=== PATIENT | male | born 1930 | race Caucasian/White ===

== ENCOUNTER 2016-06-28 12:58 | Emergency (ER) | payer MEDICARE, OTHER ==
[2016-06-28 13:35] VITALS: BP 147/76
[2016-06-28] MEDS ORDERED: Lidocaine 4% Top Soln 50 ML Bottle MUCMEM ONE (14:05)
[2016-06-28] MEDS ORDERED: Lidocaine 2% Jelly 10 ML Urojet MUCMEM ONE (14:12)
--- NOTE | 2016-06-28 16:20 | EDM.PDOC ---
ED HPI GI/ABDOMINAL - General Chief Complaint: Genitourinary Problem Stated Complaint: KIDNEY STONE,CAN't URINATE Time Seen by Provider: 06/28/16 13:44 Source of Information: Reports: Patient History Limitations: Reports: No limitations - History of Present Illness INITIAL COMMENTS - FREE TEXT/NARRATIVE: The patient had right flank pain and he saw Dr Montano who diagnosed him with a kidney stone. He passed it on Wednesday. There was a second stone in his kidney. He is having more pain now and he cannot urinate. He has no fever, chills, cough, chest pain, nausea or vomiting. He has had kidney stones in the past. Since last night he has passed very little urine. Timing/Duration: Reports: Day(s): (Yesterday) Location: flank (right and suprpubic region) Quality: Reports: cramping Severity: moderate Context: Denies: sick contact, bad/questionable food, out of country travel, recent surgery Associated Symptoms: Reports: denies other symptoms - Related Data Allergies/ADRs: Allergies Allergy/AdvReac Type Severity Reaction Status Date / Time No Known Allergies Allergy Verified 06/28/16 13:38 Past Medical History Respiratory History: Reports: Other (see below) Other Respiratory History: chest tube to drain fluids Gastrointestinal History: Reports: Other (see below) Other Gastrointestinal History: 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 Genitourinary History: Reports: Renal calculus, Renal disease Musculoskeletal History: Reports: Back pain, chronic, Osteoarthritis - Infectious Disease History Infectious Disease History: Reports: Mumps - Past Surgical History HEENT Surgical History: Reports: Other (see below) Other HEENT Surgeries/Procedures: MASHPEE-wears hearing aides GI Surgical History: Reports: Colonoscopy, Hernia, inguinal Social & Family History - Tobacco Use Month Tobacco Last Used: 15 - Caffeine Use Caffeine Use: Reports: Coffee, Soda - Recreational Drug Use Recreational Drug Use: No ED ROS GENERAL - Review of Systems Review Of Systems: See Below Constitutional: Reports: no symptoms HEENT: Reports: No symptoms Respiratory: Reports: No Symptoms Cardiovascular: Reports: No symptoms Endocrine: Reports: no symptoms GI/Abdominal: Reports: Abdominal pain (suprapubic) : Reports: flank pain (right) Musculoskeletal: Reports: no symptoms ED EXAM, GI/ABD - Physical Exam Exam: See Below Exam Limited By: No limitations General Appearance: alert, no apparent distress Ears: normal external exam Nose: normal inspection Head: atraumatic, normocephalic Neck: normal inspection Respiratory/Chest: no respiratory distress, lungs clear, normal breath sounds Cardiovascular: regular rate, rhythm, no edema, no murmur GI/Abdominal: soft, other (Moderate tenderness to the lower abdomen with palpable bladder) Course - Vital Signs Last Recorded V/S: Last Vital Signs Temp 97.5 F 06/28/16 13:33 Pulse 76 06/28/16 13:33 Resp 15 06/28/16 13:33 BP 147/76 H 06/28/16 13:33 Pulse Ox 94 L 06/28/16 13:33 - Orders/Labs/Meds Orders: Active Orders 24 hr Category Date Time Status Pena Catheter Insertion [Insert Urinary Catheter] [OM. Care 06/28/16 14:15 Ordered PC] Q24H Urinary Catheter Assessment [RC] ASDIRECTED Care 06/28/16 14:05 Active Labs: Laboratory Tests 06/28/16 06/28/16 06/28/16 Range/Units 14:23 14:23 14:30 WBC 11.94 H (4.23-9.07) K/mm3 RBC 4.31 L (4.63-6.08) M/mm3 Hgb 13.2 L (13.7-17.5) gm/L Hct 38.7 L (40.1-51.0) % MCV 89.8 (79.0-92.2) fl MCH 30.6 (25.7-32.2) pg MCHC 34.1 (32.2-35.5) g/dl RDW Std Deviation 43.8 (35.1-43.9) fL Plt Count 160 L (163-337) K/mm3 MPV 10.1 (9.4-12.3) fl Neut % (Auto) 89.6 H (34.0-67.9) % Lymph % (Auto) 4.9 L (21.8-53.1) % [place] % (Auto) 5.2 L (5.3-12.2) % Eos % (Auto) 0.1 L (0.8-7.0) Baso % (Auto) 0.1 (0.1-1.2) % Neut # 10.70 H (1.78-5.38) K/mm3 Lymph # 0.59 L (1.32-3.57) K/mm3 [place] # 0.62 (0.30-0.82) K/mm3 Eos # 0.01 L (0.04-0.54) K/mm3 Baso # 0.01 (0.01-0.08) K/mm3 Manual Slide Review Abnormal smear Sodium 139 (136-145) mEq/L Potassium 4.2 (3.5-5.1) mEq/L Chloride 105 (98-107) mEq/L Carbon Dioxide 22 (21-32) mEq/L Anion Gap 16.2 H (5-15) BUN 18 (7-18) mg/dL Creatinine 1.6 H (0.7-1.3) mg/dL Est Cr Clr Drug Dosing 28.29 mL/min Estimated GFR (MDRD) 41 (>60) mL/min BUN/Creatinine Ratio 11.3 L (14-18) Glucose 129 H (83-115) mg/dL Calcium 8.5 (8.5-10.1) mg/dL Total Bilirubin 0.6 (0.2-1.0) mg/dL AST 16 (15-37) U/L ALT 26 (16-63) U/L Alkaline Phosphatase 86 (46-116) U/L Total Protein 6.5 (6.4-8.2) g/dl Albumin 3.6 (3.4-5.0) g/dl Globulin 2.9 gm/dL Albumin/Globulin Ratio 1.2 (1-2) Urine Color Yellow (Yellow) Urine Appearance Clear (Clear) Urine pH 5.5 (5.0-8.0) Ur Specific [place] 1.020 (1.005-1.030) Urine Protein Trace H (Negative) Urine Glucose (UA) Negative (Negative) Urine Ketones Negative (Negative) Urine Occult Blood 3+ H (Negative) Urine Nitrite Negative (Negative) Urine Bilirubin Negative (Negative) Urine Urobilinogen 0.2 (0.2-1.0) Ur Leukocyte Esterase Negative (Negative) Urine RBC 30-40 H (0-5) /hpf Urine WBC 0-5 (0-5) /hpf Ur Epithelial Cells Not seen (0-5) /hpf Urine Bacteria Few (FEW) /hpf Urine Mucus Few (FEW) /hpf Meds: Medications Discontinued Medications Generic Name Dose Route Start Last Admin Trade Name Misa PRN Reason Stop Dose Admin Lidocaine HCl 1 ml 06/28/16 14:05 06/28/16 14:19 Xylocaine 4% Top Soln MUCMEM 06/28/16 14:06 Not Given ONETIME ONE Lidocaine HCl 10 ml 06/28/16 14:12 06/28/16 14:19 Xylocaine 2% Jelly MUCMEM 06/28/16 14:13 10 ml ONETIME ONE Administration - Re-Assessments/Exams Free Text/Narrative Re-Assessment/Exam: 06/28/16 16:19 I did an US of his bladder and it appeared he had over 1L. I ordered a pena cath and there was over 1200 output. His CBC looks good. His creatinine was a little elevated at 1.6. It was at 1.5 the other day in the clinic. He feels better after the catheter. His UA shows no UTI. Departure - Departure Time of Disposition: 16:25 Disposition: Home, Self-Care 01 Condition: good Clinical Impression: Urinary retention Referrals: Tian Lee MD [Primary Care Provider] - 1 Week Forms: ED Department Discharge Additional Instructions: Follow up with your doctor in 3 to 4 days to see about having the pena cath removed. Take the flomax for about 1 week. Please return if you are worse. - My Orders Last 24 Hours: My Active Orders 06/28/16 14:05 Urinary Catheter Assessment [RC] ASDIRECTED 06/28/16 14:15 Pena Catheter Insertion [Insert Urinary Catheter] [OM.PC] Q24H - Assessment/Plan Last 24 Hours: My Active Orders 06/28/16 14:05 Urinary Catheter Assessment [RC] ASDIRECTED 06/28/16 14:15 Pena Catheter Insertion [Insert Urinary Catheter] [OM.PC] Q24H
== END 2016-06-28 16:50 | disposition home or self-care (01) ==
LOC: JD.ED 12:58
DX: R33.9 Retention of urine, unspecified (principal); M19.90 Unspecified osteoarthritis, unspecified site
CPT/HCPCS: 36415; 51702; 80053; 81001; 85025; 99283; 99283-25

== ENCOUNTER 2018-05-27 12:46 | Emergency (ER) | payer MEDICARE, OTHER ==
--- NOTE | 2018-05-27 14:21 | EDM.PDOC ---
ED HPI GENERAL MEDICAL PROBLEM - General Chief Complaint: Abdominal Pain Stated Complaint: LOWER ABDOMINAL PAIN Time Seen by Provider: 05/27/18 14:20 Source of Information: Reports: Patient History Limitations: Reports: No Limitations - History of Present Illness INITIAL COMMENTS - FREE TEXT/NARRATIVE: 88-year-old male presents to the ED with diffuse lower abdominal pain. This is preceded by 2 days of nausea and intermittent vomiting. He hasn't taken anything orally today. He appreciates more pain with walking and riding in the vehicle to get here. He has not had a bowel movement for a couple of days. This is atypical for him as he has a short colon syndrome and is usually loose in the bowel department. Denies any blood per rectum. Denies vomiting any blood. Still feels mildly nauseated. Low-grade fever recorded by the nurse at 37.3. Any fever or chills. Patient is extremely hard of hearing and wears bilateral hearing aids. He is unsure of how much of his bowels removed in 1977. His daughter is pretty sure this was for colon cancer Onset: Gradual Onset Date: 05/25/18 (Gradually getting worse over the last 3 days.) Duration: Day(s):, Getting Worse Location: Reports: Abdomen (Diffuse lower abdominal discomfort not radiating into his back.) Quality: Reports: Ache, Other (Occasional cramping pain with no diarrhea) Severity: Moderate (Rates it a 5 out of 10) Improves with: Reports: Rest Worsens with: Reports: Movement (Especially standing and getting in and out of the vehicle.) Context: Denies: Activity, Exercise, Lifting, Sick Contact, Trauma, Other Associated Symptoms: Reports: Cough, cough w sputum, Loss of Appetite, Malaise, Nausea/Vomiting (2 days ago improved with the Zofran tablet), Shortness of Breath, Weakness. Denies: No Other Symptoms, Confusion, Chest Pain (Occasional sputum production but is chronic for him.), Diaphoresis, Fever/Chills, Headaches , Rash, Seizure (Chronically but perhaps a little worse lately), Syncope Treatments ENAMEL APPLIER: Reports: Other (see below) Other Treatments ENAMEL APPLIER: zofran and prilosec Lower Abdomen Pain Score (Numeric/FACES): 8 - Related Data Allergies Allergy/AdvReac Type Severity Reaction Status Date / Time No Known Allergies Allergy Verified 06/28/16 13:38 Home Meds: Home Meds . [No Known Home Meds] 05/27/18 [History] Past Medical History Respiratory History: Reports: Other (See Below) Other Respiratory History: chest tube to drain fluids Gastrointestinal History: Reports: Other (See Below) Other Gastrointestinal History: 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 Genitourinary History: Reports: Renal Calculus, Renal Disease Musculoskeletal History: Reports: Back Pain, Chronic, Osteoarthritis - Infectious Disease History Infectious Disease History: Reports: Mumps - Past Surgical History HEENT Surgical History: Reports: Other (See Below) GI Surgical History: Reports: Colonoscopy, Hernia, Inguinal Social & Family History - Tobacco Use Smoking Status *Q: Former Smoker Used Tobacco, but Quit: Yes Month/Year Tobacco Last Used: 30 years - Caffeine Use Caffeine Use: Reports: Coffee, Soda - Recreational Drug Use Recreational Drug Use: No - Living Situation & Occupation Living situation: Reports: Occupation: Retired ED ROS GENERAL - Review of Systems Review Of Systems: See Below Constitutional: Reports: Malaise, Weakness, Fatigue, Decreased Appetite, Weight Loss (Has been losing weight gradually for the last year.). Denies: Fever, Chills HEENT: Reports: Glasses, Hearing Loss Respiratory: Reports: Shortness of Breath (Wears bilateral hearing aids.), Cough. Denies: Wheezing, Pleuritic Chest Pain, Sputum (Chronic minimally productive cough.), Hemoptysis Cardiovascular: Reports: Dyspnea on Exertion (The last day or so.), Lightheadedness. Denies: Chest Pain, Blood Pressure Problem, Claudication, Orthopnea, Palpitations ( Chronically), PND, Syncope Endocrine: Reports: Fatigue GI/Abdominal: Reports: Abdominal Pain, Decreased Appetite, Nausea, Vomiting ( Had nausea and vomiting 2 days ago none today. Last emesis was last evening.). Denies: Constipation (See history of present illness), Diarrhea : Reports: Frequency, Other (Known BPH with a trigger 2 or 3) Musculoskeletal: Reports: Joint Pain (Knees hips low back neck and shoulders at times) Skin: Reports: Bruising (Uses fairly easily.) Neurological: Reports: No Symptoms Psychiatric: Reports: No Symptoms Hematologic/Lymphatic: Reports: No Symptoms Immunologic: Reports: No Symptoms ED EXAM, GI/ABD - Physical Exam Exam: See Below Exam Limited By: Physical Impairment (Have to speak very loud to him so that he can hear. He has severely hearing impaired.) General Appearance: Other (Mildly pallid. Does feel slightly warm to palpation.) Eyes: Bilateral: Pale Conjunctiva (Mild pallor bilaterally.) Throat/Mouth: Other Head: Atraumatic (Unmeasurable dry and coated.), Normocephalic Neck: Normal Inspection, Non-Tender, Limited Range of Motion. No: Full Range of Motion, Carotid Bruit, Lymphadenopathy (L), Lymphadenopathy (R) Respiratory/Chest: Respiratory Distress, Decreased Breath Sounds (Mild tachypnea at rest.). No: Rales ( Sounds are mildly diminished the lower 25% lung chung bilaterally.), Rhonchi, Wheezing Cardiovascular: Normal Peripheral Pulses, Regular Rate, Rhythm, No Edema, No Gallop, No Murmur, No Rub GI/Abdominal Exam: Soft, No Organomegaly, Distended (Mildly distended and tympanitic to percussion particularly upper abdomen.), Guarding (Mild tenderness on deep palpation in the right lower quadrant with mild guarding parents in.), Tender, Abnormal Bowel Sounds (Bowel sounds are slightly more active than normal.), Other (Well-healed midline laparotomy incision.). No: Rigid, Rebound ( Right lower quadrant) (Male) Exam: Other (Evidence of bilateral hernia repair. Inguinal) Back Exam: Other (Mild kyphosis thoracic spine.) Neurological: Alert, Oriented, CN II-XII Intact, Normal Cognition Psychiatric: Normal Affect, Normal Mood Skin Exam: Warm, Dry, Intact, No Rash, Pallor EKG INTERPRETATION EKG Date: 05/27/18 Time: 14:47 Rhythm: Other (Occasional unifocal PVCs) Rate (Beats/Min): 86 [place]: Normal P-Wave: Enlarged (Consider left atrial enlargement.) QRS: Other (Mildly decreased voltage in the limb leads.) ST-T: Normal QT: Normal EKG Interpretation Comments: Abnormal ECG Course - Vital Signs Last Recorded V/S: Last Vital Signs Temp 37.3 C 05/27/18 13:49 Pulse 89 05/27/18 13:49 Resp 20 05/27/18 13:49 BP 138/85 05/27/18 13:49 Pulse Ox 97 05/27/18 13:49 - Orders/Labs/Meds Orders: Active Orders 24 hr Category Date Time Status Bladder Scan [RC] ASDIRECTED Care 05/27/18 17:51 Active EKG Documentation Completion [RC] STAT Care 05/27/18 14:29 Active Gastrointestinal Tube Mgmt [RC] ASDIRECTED Care 05/27/18 18:47 Active Abdomen 1V Flat [CR] Stat Exams 05/27/18 14:29 Taken Chest 1V Frontal [CR] Stat Exams 05/27/18 14:29 Taken CULTURE BLOOD [BC] Stat Lab 05/27/18 15:00 Received CULTURE BLOOD [BC] Stat Lab 05/27/18 15:08 Received Dextrose 5%-0.9% NaCl [Dextrose 5%-Normal Saline] 1,000 Med 05/27/18 14:30 Active ml IV ASDIRECTED Blood Culture x2 Reflex Set [OM.PC] Stat Oth 05/27/18 14:30 Ordered Nasogastric Orogastric Tube Insertion [OM.PC] Routine Oth 05/27/18 18:47 Ordered Medication Orders Dextrose/Sodium Chloride (Dextrose 5%-Normal Saline) 1,000 mls @ 200 mls/hr IV ASDIRECTED AREN Last Admin: 05/27/18 15:02 Dose: 200 mls/hr Labs: Laboratory Tests 05/27/18 05/27/18 05/27/18 Range/Units 15:00 15:00 15:00 WBC 7.77 (4.23-9.07) K/mm3 RBC 4.83 (4.63-6.08) M/mm3 Hgb 13.8 (13.7-17.5) gm/L Hct 41.9 (40.1-51.0) % MCV 86.7 (79.0-92.2) fl MCH 28.6 (25.7-32.2) pg MCHC 32.9 (32.2-35.5) g/dl RDW Std Deviation 45.7 H (35.1-43.9) fL Plt Count 184 (163-337) K/mm3 MPV 10.7 (9.4-12.3) fl Neutrophils % (Manual) 86 H (40-60) % Band Neutrophils % 0 (0-10) % Lymphocytes % (Manual) 11 L (20-40) % Atypical Lymphs % 0 % Monocytes % (Manual) 2 (2-10) % Eosinophils % (Manual) 1 (0.8-7.0) % Basophils % (Manual) 0 L (0.2-1.2) Platelet Estimate Adequate RBC Morph Comment Normal PT 10.9 (9.5-12.1) SECONDS INR 1.00 APTT 24 (24-31) SECONDS Sodium 138 (136-145) mEq/L Potassium 4.5 (3.5-5.1) mEq/L Chloride 103 (98-107) mEq/L Carbon Dioxide 22 (21-32) mEq/L Anion Gap 17.5 H (5-15) BUN 28 H (7-18) mg/dL Creatinine 1.6 H (0.7-1.3) mg/dL Est Cr Clr Drug Dosing 26.21 mL/min Estimated GFR (MDRD) 41 (>60) mL/min BUN/Creatinine Ratio 17.5 (14-18) Glucose 128 H (83-115) mg/dL Lactic Acid (0.4-2.0) mmol/L Calcium 9.0 (8.5-10.1) mg/dL Magnesium 2.2 (1.8-2.4) mg/dl Total Bilirubin 0.8 (0.2-1.0) mg/dL AST 22 (15-37) U/L ALT 19 (16-63) U/L Alkaline Phosphatase 122 H (46-116) U/L Troponin I < 0.017 (0.00-0.056) ng/mL C-Reactive Protein 1.8 H* (<1.0) mg/dL NT-Pro-B Natriuret Pep (0-450) pg/mL Total Protein 7.4 (6.4-8.2) g/dl Albumin 3.5 (3.4-5.0) g/dl Globulin 3.9 gm/dL Albumin/Globulin Ratio 0.9 L (1-2) 05/27/18 05/27/18 Range/Units 15:00 15:00 WBC (4.23-9.07) K/mm3 RBC (4.63-6.08) M/mm3 Hgb (13.7-17.5) gm/L Hct (40.1-51.0) % MCV (79.0-92.2) fl MCH (25.7-32.2) pg MCHC (32.2-35.5) g/dl RDW Std Deviation (35.1-43.9) fL Plt Count (163-337) K/mm3 MPV (9.4-12.3) fl Neutrophils % (Manual) (40-60) % Band Neutrophils % (0-10) % Lymphocytes % (Manual) (20-40) % Atypical Lymphs % % Monocytes % (Manual) (2-10) % Eosinophils % (Manual) (0.8-7.0) % Basophils % (Manual) (0.2-1.2) Platelet Estimate RBC Morph Comment PT (9.5-12.1) SECONDS INR APTT (24-31) SECONDS Sodium (136-145) mEq/L Potassium (3.5-5.1) mEq/L Chloride (98-107) mEq/L Carbon Dioxide (21-32) mEq/L Anion Gap (5-15) BUN (7-18) mg/dL Creatinine (0.7-1.3) mg/dL Est Cr Clr Drug Dosing mL/min Estimated GFR (MDRD) (>60) mL/min BUN/Creatinine Ratio (14-18) Glucose (83-115) mg/dL Lactic Acid 1.0 (0.4-2.0) mmol/L Calcium (8.5-10.1) mg/dL Magnesium (1.8-2.4) mg/dl Total Bilirubin (0.2-1.0) mg/dL AST (15-37) U/L ALT (16-63) U/L Alkaline Phosphatase (46-116) U/L Troponin I (0.00-0.056) ng/mL C-Reactive Protein (<1.0) mg/dL NT-Pro-B Natriuret Pep 1007 H (0-450) pg/mL Total Protein (6.4-8.2) g/dl Albumin (3.4-5.0) g/dl Globulin gm/dL Albumin/Globulin Ratio (1-2) Meds: Medications Generic Name Dose Route Start Last Admin Trade Name Freq PRN Reason Stop Dose Admin Dextrose/Sodium Chloride 1,000 mls @ 200 mls/hr 05/27/18 14:30 05/27/18 15:02 Dextrose 5%-Normal Saline IV 200 mls/hr ASDIRECTED AREN Administration Discontinued Medications Generic Name Dose Route Start Last Admin Trade Name Freq PRN Reason Stop Dose Admin Diatrizoate Meglum/Diatrizoate Sod 60 ml 05/27/18 16:03 05/27/18 17:21 Gastrografin 37% PO 05/27/18 16:04 60 ml ONETIME ONE Administration Hydromorphone HCl 0.25 mg 05/27/18 14:28 05/27/18 15:03 Dilaudid IVPUSH 05/27/18 14:29 0.25 mg ONETIME ONE Administration Hydromorphone HCl 0.25 mg 05/27/18 17:13 05/27/18 17:31 Dilaudid IVPUSH 05/27/18 17:14 0.25 mg ONETIME ONE Administration Lidocaine HCl 10 ml 05/27/18 18:37 05/27/18 18:50 Xylocaine 2% Jelly MUCMEM 05/27/18 18:38 10 ml ONETIME ONE Administration Lidocaine HCl 10 ml 05/27/18 18:46 05/27/18 18:50 Xylocaine 2% Jelly MUCMEM 05/27/18 18:47 Not Given ONETIME ONE Metoclopramide HCl 5 mg 05/27/18 14:28 05/27/18 15:02 Reglan IVPUSH 05/27/18 14:29 5 mg ONETIME ONE Administration - Radiology Interpretation Free Text/Narrative:: 88-year-old male presents to the ED with chief complaint of diffuse lower abdominal pain that is gradually worsened over the last 2-3 days. It is preceded by nausea and vomiting yesterday and the day before. Last emesis was last night. He has not ate or drank hardly anything today. He has had no diarrhea diarrhea or bowel movement for 2 days. Has had no blood per rectum. Has a history of remote cancer of the colon resected in 1977. Unclear how much bowel was resected. Emanation reveals him to be mildly volume depleted with tongue very dry and coated. He also clinically has a low-grade fever. The abdomen is slightly distended to been to percussion. Some tenderness and slight guarding appreciated on palpation of the right lower quadrant. It's unclear if he had a right hemicolectomy with appendectomy in the past or only the left colon removed. No clinical evidence of bowel obstruction. Plan septic workup will be carried out. One view of the chest 1 view the abdomen will be done. He will likely need CT of the abdomen with oral contrast. IV will be D5 normal saline at 200 mils an hour. I will give him his Reglan 5 mg IV for nausea relief and 0.25 mg of Dilaudid for pain relief. - Re-Assessments/Exams Free Text/Narrative Re-Assessment/Exam: 05/27/18 15:51 Total white count is normal at 7.77. Differential is pending. Hemoglobin is 13.8 with hematocrit of 41.9. MCV is 86.7. Platelet count is 184, 000. PT is 10.9 with an INR of 1.00. PTT is 24. Sodium 138 with potassium of 4.5. Chloride 103 with a bicarbonate of 22. Anion gap mildly elevated at 17.5. B1 is 28 with a running of 1.6. GFR is 41. This is stage III chronic kidney disease. Glucose is 128. Lactic acid is 1.0. Calcium is 9.0 with magnesium of 2.2. Liver function is normal. Alk phosphatase slightly elevated at 122. Troponin I is less than 0.017. CRP is mildly elevated at 1.8. BNP is 1007. Total protein 7.4 with an albumin fraction of 3.5. We will proceed with CT of the abdomen with oral contrast only. Need to rule out diverticulitis or appendicitis. He reports he started a little bit of abdominal pain but his daughter and son are in the room and state that he hasn't been complaining of any pain. Checks his chest x-ray reveals mildly hyperinflated lung chung with COPD pattern. No evidence of congestive failure cardiac silhouette upper limits of normal. KUB reveals increased air throughout the entire colon . There is no sign of a bowel obstruction. 05/27/18 17:55 CT of the abdomen has been completed. Visualized portions of the lung chung there are 3 separate masses identified within the right lung base 2 nodules noted within the left lung base. Partially visualized nodule is seen within the most upper cut within the right base largest abnormality measures 2.5 cm. Subpleural bleb is noted within the left base. The liver has shows low density lesions with largest abnormality measuring approximately 7.1 cm. Spleen size is normal small hiatal hernia is appreciated with reflux of contrast into the esophagus. Adrenal glands show no nodule parapelvic cysts are noted within the left kidney is noted within the left kidney which is cortical in location measuring 5.7 cm . There is no ureteral stones or dilatation. Gallbladder is present but not well seen and show some increased density presumably due to stones. Pancreas is atrophic. Spleen appears normal. Appears to be mild perinephric stranding around both kidneys slightly more prominent on the right side. There is a large staghorn horn calculus in the right renal pelvis. Both renal pelvis are mildly dilated. Urinary bladder appears to be fairly prominent. Prostate is prominent as well. Small amount of free fluid is seen within the pelvis There is no evidence of appendicitis on CT. He does have diffuse diverticula involving the left colon and sigmoid colon but no evidence of acute diverticulitis is appreciated. The transverse colon and right colon and small bowel appear to be dilated. Additional point appears to be slightly past the hepatic flexure which may represent an area of colonic carcinoma given the other findings as appreciated above. Atherosclerotic calcination is seen within the aorta and iliac vessels without aneurysm. No retroperitoneal adenopathy is seen. No discrete mesenteric abnormalities are identified. Impression copy from the radiology report shows multiple pulmonary nodules most likely metastatic low-density lesions within the liver most likely metastatic prominent transverse and right colon as well as small bowel loops transition point is within the left colon slightly past the hepatic flexure which may relate to colonic carcinoma given the other findings. Colonoscopy is strongly recommended. 05/27/18 18:45: Spoke with the family at length as well as the patient. I'm not sure how much he understands but I think he got the gist of the information. He knows that the nose is not good and that he is going onto a small bowel obstruction due to obstruction in the splenic flexure of his colon. It appears that this is most likely secondary to recurrence of cancer of the colon. I indicated that transferred to [place] would be required since we don't have anesthesiology or a surgeon available at this point time that can do a diverting colostomy if he needs surgical management of bowel obstruction. Family is made aware that treatment will be. If no matter what as there appears to be extensive cancer throughout the liver and involving the lungs. I was then able to speak through 1 call at [facility] to Dr. Egan-- hospitalist on-call and then we discussed the case with bowling or skating front desk clerk surgeon Dr. Carvajal. Decision made to accept the patient at that facility for potential loop diverting colostomy if he goes on to for bowel obstruction. Nasogastric tube was placed here and is currently functioning on low intermittent suction. Patient be transferred to [facility] in [place] per ground ambulance Departure - Departure Time of Disposition: 19:37 Disposition: DC/Tfer to Acute Hospital 02 Condition: Serious Clinical Impression: Low grade fever, Large bowel obstruction, Abdominal carcinomatosis Nausea and vomiting Qualifiers: Vomiting type: bilious vomiting Qualified Code(s): R11.14 - Bilious vomiting Abdominal pain Qualifiers: Abdominal location: right upper quadrant Qualified Code(s): R10.11 - Right upper quadrant pain - Discharge Information *PRESCRIPTION DRUG MONITORING PROGRAM REVIEWED*: Not Applicable *COPY OF PRESCRIPTION DRUG MONITORING REPORT IN PATIENT JANET: Not Applicable Referrals: Tian Lee MD [Primary Care Provider] - Forms: ED Department Discharge Additional Instructions: Patient discovered to have metastatic cancer in his liver and several lung nodules that are most likely metastatic as well. Primary lesion appears to be a reoccurrence of cancer of the colon and the splenic flexure was developing small bowel obstruction. The cause of his spontaneous nausea and vomiting and diffuse lower abdominal pain. Patient was sent to [facility] in [place] for potential surgery if it comes to that as he may need a diverting loop colostomy to bypass the obstruction and relieve abdominal pain. His treatment thus going forward will be palliative as he appears to have advanced cancer spread. - My Orders Last 24 Hours: My Active Orders 05/27/18 14:29 EKG Documentation Completion [RC] STAT Abdomen 1V Flat [CR] Stat Chest 1V Frontal [CR] Stat 05/27/18 14:30 Dextrose 5%-0.9% NaCl [Dextrose 5%-Normal Saline] 1,000 ml IV ASDIRECTED Blood Culture x2 Reflex Set [OM.PC] Stat 05/27/18 15:00 CULTURE BLOOD [BC] Stat 05/27/18 15:08 CULTURE BLOOD [BC] Stat 05/27/18 17:51 Bladder Scan [RC] ASDIRECTED 05/27/18 18:47 Gastrointestinal Tube Mgmt [RC] ASDIRECTED Nasogastric Orogastric Tube Insertion [OM.PC] Routine - Assessment/Plan Last 24 Hours: My Active Orders 05/27/18 14:29 EKG Documentation Completion [RC] STAT Abdomen 1V Flat [CR] Stat Chest 1V Frontal [CR] Stat 05/27/18 14:30 Dextrose 5%-0.9% NaCl [Dextrose 5%-Normal Saline] 1,000 ml IV ASDIRECTED Blood Culture x2 Reflex Set [OM.PC] Stat 05/27/18 15:00 CULTURE BLOOD [BC] Stat 05/27/18 15:08 CULTURE BLOOD [BC] Stat 05/27/18 17:51 Bladder Scan [RC] ASDIRECTED 05/27/18 18:47 Gastrointestinal Tube Mgmt [RC] ASDIRECTED Nasogastric Orogastric Tube Insertion [OM.PC] Routine
[2018-05-27] MEDS ORDERED: HYDROmorphone 1 MG/ML Syringe IVPUSH ONE ×2 (14:28→17:13)
[2018-05-27] MEDS ORDERED: Metoclopramide 10 MG/2 ML SDV IVPUSH ONE (14:28)
[2018-05-27] MEDS ORDERED: Dextrose 5%-0.9% NaCl 1,000 ML IV SCH (14:30)
[2018-05-27] MEDS ORDERED: Diatrizoate Meglumine/Diatrizoate Sodium 37% 120 ML Bottle PO ONE (16:03)
--- NOTE | 2018-05-27 17:55 | CT ---
Addendum: Previous report states possible obstruction slightly past the hepatic flexure which is incorrect. This possible obstruction is past the splenic flexure. --- Addendum1 above dictated on [05/28/2018 14:33] by [Stone Roy Hilton J.] --- --- Addendum1 above signed on [05/28/2018 14:34] by [Stone Roy Hilton J.] --- --- Original report below dictated on [05/27/2018 17:52] by [Stone Roy Hilton J.] --- --- Original report below signed on [05/27/2018 17:52] by [Stone Roy Hilton J.] --- CT abdomen and pelvis Technique: Multiple axial sections were obtained from above the dome of the diaphragm inferiorly through the pubic symphysis. Oral contrast was utilized. No intravenous contrast was given. Limitations: Significant motion artifact is seen. Comparison: Prior CT abdomen and pelvis exam performed as a ureteral stone protocol dated 12/12/14. Findings: 3 separate masses are identified within the right lung base. 2 nodules noted within the left lung base. Partially visualized nodule is seen within the most upper cut within the right base. Largest abnormality measures 2.5 cm. Subpleural bleb is noted within the left base. Liver shows low density lesions with largest abnormality measuring approximately 7.1 cm. Spleen size is normal. Small hiatal hernia is seen with gastroesophageal reflux of contrast into the esophagus. Adrenal glands show no nodule. Parapelvic cysts are noted within the left kidney. Cyst noted within the left kidney which is cortical in location measuring 5.7 cm. No ureteral dilatation or ureteral stone is seen. Gallbladder appears to be present but not well seen and shows some increased density presumably due to gallstones. Small amount of free fluid seen within the pelvis. Diverticuli are seen within the sigmoid colon without diverticulitis. Transverse colon and right colon and small bowel are dilated. Transitional point appears to be slightly past the hepatic flexure which may represent an area of colonic carcinoma given the other findings. Atherosclerotic calcification is seen within the aorta and iliac vessels without aneurysm. No retroperitoneal adenopathy is seen. No discrete mesenteric abnormalities are seen. No discrete pelvic adenopathy is noted. Bone window settings were reviewed which shows scattered degenerative change within the spine. Impression: 1. Multiple pulmonary nodules most likely metastatic. Low-density lesions within the liver most likely metastatic. 2. Prominent transverse and right colon as well as small bowel loops. Transition point is within the left colon slightly past the hepatic flexure which may relate to colonic carcinoma given the other findings. Colonoscopy is strongly recommended. 3. Small amount of nonspecific fluid within the pelvis. 4. Other incidental findings as noted above. Diagnostic code #9 --- Addendum1 signed ---
[2018-05-27] MEDS ORDERED: Lidocaine 2% Jelly 10 ML Urojet MUCMEM ONE ×2 (18:37→18:46)
[2018-05-27 20:09] VITALS: BP 140/59
--- NOTE | 2018-05-28 15:10 | CR ---
Chest: PA view of the chest was obtained. Comparison: Prior chest x-ray of 05/12/12. Heart size is within normal limits. Tortuous thoracic aorta is seen. Infusion port entering from the left side. Lungs are clear with no acute parenchymal change. Slight scoliosis is noted within the spine with mild degenerative change. Impression: 1. Incidental findings. Nothing acute is seen. Diagnostic code #2
--- NOTE | 2018-05-28 15:10 | CR ---
Abdomen: Supine view of the abdomen was obtained. Comparison: No previous abdominal x-ray, previous CT abdomen and pelvis study of 07/04/14. Dilated loops of small bowel are seen as well as gas within the right and transverse colon. Small amount of gas is noted within nondilated sigmoid and rectum. Surgical anastomotic sutures are seen within the midabdomen. Slight degenerative change within the spine is seen. Impression: 1. Mildly dilated bowel as noted above. Findings highly suspicious for obstructing lesion within the left colon near the splenic flexure. This is better seen on subsequent CT exam. 2. Other incidental findings. Diagnostic code #9
== END 2018-05-27 19:40 ==
LOC: JD.ED 12:46
DX: K56.609 Unspecified intestinal obstruction, unspecified as to partial versus complete obstruction (principal); C80.0 Disseminated malignant neoplasm, unspecified; R11.14 Bilious vomiting; C22.8 Malignant neoplasm of liver, primary, unspecified as to type; C79.9 Secondary malignant neoplasm of unspecified site; K57.30 Diverticulosis of large intestine without perforation or abscess without bleeding; Z87.891 Personal history of nicotine dependence
CPT/HCPCS: 36415; 51798; 71045; 74018; 74176; 80053; 83605; 83735; 83880; 84484; 85007; 85027; 85610; 85730; 86140; 87040; 93005; 96361; 96374; 96375; 96376; 99285; J1170; J2765; J7042; Q9963; 93010